=== PATIENT | male | born 1955 | race Caucasian/White ===

== ENCOUNTER → 2023-12-05 10:31 | Outpatient (REF) | payer OTHER, SELFPAY | LOC: RCS 10:31 | PROVIDERS: ATTENDING PHYSICIAN Nurse Practitioner Adult Health | DX: R07.89 Other chest pain (principal); E11.65 Type 2 diabetes mellitus with hyperglycemia; E78.2 Mixed hyperlipidemia; E66.9 Obesity, unspecified; R53.81 Other malaise; R53.83 Other fatigue; R94.31 Abnormal electrocardiogram [ECG] [EKG] | CPT/HCPCS: 93017 ==

== ENCOUNTER → 2024-04-14 06:36 | Day surgery (SDC) | payer OTHER, SELFPAY ==
[2024-04-14 10:54] LABS: Glucose - Point of Care 197 mg/dl (70-99)
== END ==
LOC: GI 06:36
PROVIDERS: ATTENDING PHYSICIAN Internal Medicine Gastroenterology
DX: Z12.11 Encounter for screening for malignant neoplasm of colon (principal); K64.8 Other hemorrhoids; K57.30 Diverticulosis of large intestine without perforation or abscess without bleeding; K63.5 Polyp of colon; R19.5 Other fecal abnormalities; D12.4 Benign neoplasm of descending colon
CPT/HCPCS: 45385; 88305; 82962